=== PATIENT | female | born 1980 | race Caucasian/White ===

== ENCOUNTER 2016-04-04 08:17 | Emergency (ER) | payer BC ==
[2016-04-04 08:43] VITALS: BP 103/70
--- NOTE | 2016-04-04 09:49 | UC ---
FLU HPI - HPI Summary HPI Summary: The patient comes in today for: 1. Sore throat: Onset: Yesterday. Palliative/provocative: Cold care tea helps. Quality: swollen Region: Throat Severity: 6/10 Time: Constant. Associated symptoms: Rhinitis: None. Cough: None. Flu vaccine: She can't remember. 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 * - History of Current Complaint Chief Complaint: UCRespiratory Stated Complaint: SORE THROAT Time Seen by Provider: 04/04/16 09:42 Hx Obtained From: Patient Hx Last Menstrual Period: 03/14/16 - Allergy/Home Medications Allergies/Adverse Reactions: Allergies Allergy/AdvReac Type Severity Reaction Status Date / Time Penicillins Allergy family Verified 04/04/16 08:36 history Home Medications: Home Medications Baclofen TAB* [Lioresal TAB*] 10 mg PO TID PRN 04/04/16 [History Confirmed 04/04] Multiple Vitamin [Multi Vitamin] 1 tab PO 04/04/16 [History] Nortriptyline CAP* [Pamelor CAP*] 10 mg PO BEDTIME 04/04/16 [History Confirmed 04/04/16] PMH/Surg Hx/FS Hx/Imm Hx Previously Healthy: No - "Back problems." Endocrine History Of: Denies: Diabetes, Thyroid Disease, Hyperthyroidism, Hypothyroidism, Dyslipidemia Cardiovascular History Of: Denies: Cardiac Disorders, Hypertension, Pacemaker/ICD, Myocardial Infarction , Congestive Heart Failure, Atrial Fibrillation, Deep Vein Thrombosis, Bleeding Disorders Respiratory History Of: Denies: COPD, Asthma, Bronchitis, Pneumonia, Pulmonary Embolism GI/ History Of: Denies: Gastroesophageal Reflux, Ulcer, Gastrointestinal Bleed, Gall Bladder Disease, Kidney Stones, Diverticulitis, Renal Disease, Urosepsis Neurological History Of: Denies: TIA, CVA, Dementia, Seizures, Migraine Psychological History Of: Denies: Anxiety, Depression, Bipolar Disorder, Schizophrenia, Post Traumatic Stress Disorder Cancer History Of: Denies: Lung Cancer, Colorectal Cancer, Breast Cancer, Prostate Cancer, Cervical Cancer Other History Of: Negative For: HIV, Hepatitis B, Hepatitis C, Anticoagulant Therapy - Surgical History Surgical History: Yes Surgery Procedure, Year, and Place: kneex2, x2, back - Family History Known Family History: Positive: Hypertension Negative: Cardiac Disease - Social History Occupation: Employed Full-time Alcohol Use: Rare Substance Use Type: None Smoking Status (MU): Never Smoked Tobacco Review of Systems Constitutional: Negative Skin: Negative Eyes: Negative ENT: Negative Respiratory: Negative Cardiovascular: Negative Gastrointestinal: Negative Genitourinary: Negative All Other Systems Reviewed And Are Negative: Yes Physical Exam Triage Information Reviewed: Yes Appearance: Well-Appearing, No Pain Distress, Well-Nourished Vital Signs: Initial Vital Signs Temp 98.5 F 04/04/16 08:38 Pulse 99 04/04/16 08:38 Resp 18 04/04/16 08:38 BP 103/70 04/04/16 08:38 Pulse Ox 97 04/04/16 08:38 Vital Signs Reviewed: Yes Eyes: Positive: Conjunctiva Clear. Negative: Discharge ENT: Positive: Hearing grossly normal. Negative: Pharyngeal erythema, Nasal congestion, Nasal drainage, TM bulging, TM dull, TM red, Tonsillar swelling, Tonsillar exudate Dental: Negative: Gross Decay/Caries @, Dental Fracture @ Neck: Positive: Supple, Nontender, No Lymphadenopathy. Negative: Nuchal Rigidity Respiratory: Positive: Chest non-tender, Lungs clear, No respiratory distress, No accessory muscle use. Negative: Crackles, Rhonchi Cardiovascular: Positive: RRR, No Murmur, Pulses Normal Abdomen Description: Positive: Nontender, No Organomegaly, Soft. Negative: Distended, Guarding Musculoskeletal: Positive: Strength Intact, ROM Intact, No Edema Neurological: Positive: Alert, Muscle Tone Normal Psychological: Positive: Age Appropriate Behavior, Consolable Skin: Negative: rashes, breakdown Diagnostics - Laboratory Diagnostic Studies Completed/Ordered: Strep test: (-). Flu test: (-) Flu Course/Dx - Differential Dx/Diagnosis Provider Diagnoses: Viral pharyngitis. Upper respiratory infection. Discharge - Discharge Plan Condition: Stable Disposition: HOME Patient Education Materials: Upper Respiratory Infection (ED), Pharyngitis (ED) Referrals: Digna Drew MD [Primary Care Provider] - 1 Week (Please see your primary care provider in about a week to see how well you are doing. If you get worse, please be seen sooner.)
== END 2016-04-04 10:28 | disposition home or self-care (01) ==
LOC: UCCORT 08:17
DX: J06.9 Acute upper respiratory infection, unspecified (principal); Z88.0 Allergy status to penicillin
CPT/HCPCS: 87502; 87651; 99212; G0463

== ENCOUNTER 2017-01-26 15:20 | Emergency (ER) | payer BC ==
[2017-01-26 15:59] VITALS: BP 106/60
--- NOTE | 2017-01-26 16:20 | ED ---
HPI Cardiac - HPI Summary HPI Summary: 36 yr old with cough, fever, chills, malaise, fatigue. Onset of symptoms five days ago. Began with chills, fatigue, myalgias. She then developed a cough over the weekend. She states she has not had runny nose, post nasal drip. Denies SOB, CP. 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 She has no other complaints. She does have multiple ill exposures. - History of Current Complaint Chief Complaint: UCGeneralIllness Stated Complaint: FLU LIKE SXS Time Seen by Provider: 01/26/17 15:56 Hx Last Menstrual Period: LAST WK - Allergy/Home Medications Allergies/Adverse Reactions: Allergies Allergy/AdvReac Type Severity Reaction Status Date / Time Penicillins Allergy family Verified 01/26/17 15:59 history Home Medications: Home Medications Ibuprofen [Ibuprofen 200] 800 mg PO Q8HR PRN 01/26/17 [History Confirmed ] Lidocaine PATCH 5%* [Lidoderm 5% Patch*] 1 patch TRANSDERM DAILY PRN 01/26/17 [ History Confirmed 01/26/17] Melatonin 10 mg PO BEDTIME PRN 01/26/17 [History Confirmed 01/26/17] PMH/Surg Hx/FS Hx/Imm Hx Endocrine/Hematology History: Denies: Hx Anticoagulant Therapy, Hx Diabetes, Hx Thyroid Disease Cardiovascular History: Denies: Hx Congestive Heart Failure, Hx Deep Vein Thrombosis, Hx Hypertension , Hx Myocardial Infarction, Hx Pacemaker/ICD Respiratory History: Denies: Hx Asthma, Hx Chronic Obstructive Pulmonary Disease (COPD), Hx Lung Cancer, Hx Pneumonia, Hx Pulmonary Embolism GI History: Denies: Hx Gall Bladder Disease, Hx Gastrointestinal Bleed, Hx Ulcer, Hx Urosepsis History: Denies: Hx Kidney Stones, Hx Renal Disease Neurological History: Denies: Hx Dementia, Hx Migraine, Hx Seizures, Hx Transient Ischemic Attacks (TIA) Psychiatric History: Denies: Hx Anxiety, Hx Depression, Hx Schizophrenia, Hx Bipolar Disorder - Surgical History Surgery Procedure, Year, and Place: kneex2, x2, back Infectious Disease History: No Infectious Disease History: Denies: Hx Hepatitis, Traveled Outside the [place] in Last 30 Days - Family History Known Family History: Positive: Hypertension Negative: Cardiac Disease - Social History Alcohol Use: Occasionally Substance Use Type: Reports: None Smoking Status (MU): Never Smoked Tobacco Review of Systems Positive: Fever, Chills, Fatigue Positive: Cough All Other Systems Reviewed And Are Negative: Yes Physical Exam Triage Information Reviewed: Yes Vital Signs On Initial Exam: Initial Vitals Temp Pulse Resp BP Pulse Ox 98.3 F 79 20 106/60 99 01/26/17 15:52 01/26/17 15:52 01/26/17 15:52 01/26/17 15:52 01/26/17 15:52 Vital Signs Reviewed: Yes Appearance: Positive: Well-Appearing, No Pain Distress Skin: Positive: Warm Head/Face: Positive: Normal Head/Face Inspection Eyes: Positive: EOMI ENT: Positive: Pharynx normal, TMs normal. Negative: Pharyngeal erythema, Muffled voice, Hoarse voice Neck: Positive: Nontender Respiratory/Lung Sounds: Positive: Clear to Auscultation, Breath Sounds Present Cardiovascular: Positive: RRR. Negative: Murmur Abdomen Description: Positive: Nontender Musculoskeletal: Positive: Strength/ROM Intact Neurological: Positive: Sensory/Motor Intact, Alert, Oriented to Person Place, Time, CN Intact II-III Psychiatric: Positive: Normal - [place] Coma Scale Best Eye Response: 4 - Spontaneous Best Motor Response: 6 - Obeys Commands Best Verbal Response: 5 - Oriented Diagnostics - Vital Signs Vital Signs Temp Pulse Resp BP Pulse Ox 01/26/17 15:52 98.3 F 79 20 106/60 99 - Laboratory Lab Statement: Any lab studies that have been ordered have been reviewed, and results considered in the medical decision making process. Disposition - Course Course Of Treatment: 36 yr old female with the complaint of coughing. Rapid influenza is negative. D/C home. - Diagnoses Provider Diagnoses: Cough Discharge - Discharge Plan Condition: Good Disposition: HOME Patient Education Materials: Cold Symptoms (ED) Referrals: Digna Drew MD [Primary Care Provider] - 2 Days
== END 2017-01-26 17:22 | disposition home or self-care (01) ==
LOC: UCCORT 15:20
DX: R05 Cough (principal); R50.9 Fever, unspecified; R53.83 Other fatigue; Z88.0 Allergy status to penicillin
CPT/HCPCS: 87502; 99211; G0463

== ENCOUNTER 2017-07-11 17:36 | Emergency (ER) | payer BC ==
[2017-07-11 18:12] VITALS: BP 124/69
--- NOTE | 2017-07-11 19:06 | RAD ---
Indication: Right shoulder pain. 3 views of the right shoulder demonstrates no fracture. No other bone or joint abnormality is noted although the clavicle is slightly deforms and clinical correlation is suggested. IMPRESSION: There is bowing of the clavicle for which clinical correlation is suggested. No fracture of the right shoulder is noted.
--- NOTE | 2017-07-12 16:51 | UC ---
Upper Extremity HPI - HPI Summary HPI Summary: Patient is a 36-year-old female who presents emergency department for right shoulder pain 2 days. She does not recall any specific injury but woke up with right shoulder pain yesterday. Pain is worse with movement. History of fibromyalgia. Denies neck pain, numbness, tingling or weakness. 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 Symptoms are mild in severity. - History of Current Complaint Chief Complaint: UCUpperExtremity Stated Complaint: RT SHOULDER COMPLAINT Time Seen by Provider: 07/11/17 18:24 Hx Obtained From: Patient Hx Last Menstrual Period: 06/20/17 Pain Intensity: 7 Pain Scale Used: 0-10 Numeric - Allergies/Home Medications Allergies/Adverse Reactions: Allergies Allergy/AdvReac Type Severity Reaction Status Date / Time Penicillins Allergy See Comment Verified 07/11/17 18:05 PMH/Surg Hx/FS Hx/Imm Hx Previously Healthy: Yes Other History Of: Negative For: HIV, Hepatitis B, Hepatitis C, Anticoagulant Therapy - Surgical History Surgical History: Yes Surgery Procedure, Year, and Place: kneex2, x2, back - Family History Known Family History: Positive: Hypertension Negative: Cardiac Disease - Social History Occupation: Employed Full-time Lives: With Family Alcohol Use: Occasionally Substance Use Type: None Smoking Status (MU): Never Smoked Tobacco Review of Systems Musculoskeletal: Other: - Right shoulder pain Neurological: Negative Is Patient Immunocompromised?: No All Other Systems Reviewed And Are Negative: Yes Physical Exam Triage Information Reviewed: Yes Appearance: Well-Appearing - Pt. sitting on exam table in NAD. Daughter present. Vital Signs: Initial Vital Signs Temp 98.9 F 07/11/17 18:05 Pulse 74 07/11/17 18:05 Resp 16 07/11/17 18:05 BP 124/69 07/11/17 18:05 Pulse Ox 100 07/11/17 18:05 Vital Signs Reviewed: Yes Eyes: Positive: Conjunctiva Clear Neck: Positive: Supple, Nontender. Negative: Nuchal Rigidity Musculoskeletal: Positive: Other: - Right arm is neurovascularly intact. No pain over clavicle. Moderate pain with ROM. ROM limited secondary to pain. No overlying edema or erythema. 5/5 strength in hand Upper Extremity Course/Dx - Course Course Of Treatment: Presenting with atraumatic right shoulder pain. X-ray shows bowing of the clavicle without acute findings, reading per radiology. Patient has no clavicular exam. Results were discussed with patient. Recommend anti-inflammatories and ice. Close follow-up with PCP if symptoms continue. Activity as tolerating. Pt. understands and agrees with plan. - Differential Dx/Diagnosis Differential Diagnosis/HQI/PQRI: Arthritis, Bursitis, Contusion, Strain, Sprain Provider Diagnoses: Shoulder pain Discharge - Sign-Out/Discharge Documenting (check all that apply): Discharge/Admit/Transfer - Discharge Plan Condition: Good Disposition: HOME Prescriptions: Naproxen [Naproxen 500 mg tab] 500 mg PO BID #20 tablet. Patient Education Materials: Shoulder Pain (ED) Referrals: Digna Drew MD [Primary Care Provider] - Additional Instructions: Schedule a follow up appointment with your PCP if pain continues Ice and rest shoulder Naproxen as directed for pain Return to UC if symptoms change or worsen - Billing Disposition and Condition Condition: GOOD Disposition: HOME
== END 2017-07-11 19:57 | disposition home or self-care (01) ==
LOC: UCCORT 17:36
DX: M25.511 Pain in right shoulder (principal); Z88.0 Allergy status to penicillin
CPT/HCPCS: 99212; G0463